=== PATIENT | female | born 1985 | race Caucasian/White ===

== ENCOUNTER 2024-03-13 20:03 | Emergency (ER) | payer MEDICAID ==
[~2024-03-13] VITALS: Ht 157.5 cm; Wt 72.6 kg
[2024-03-13 20:18] VITALS: BP 113/75; PULSE 70; RESP 16; TEMP 97.1; O2SAT 100
[2024-03-13 20:35] VITALS: BP 113/75; PULSE 70; RESP 16; TEMP 97.1; O2SAT 100
[2024-03-13] MEDS ORDERED: COROTSOL LEFT EAR (20:36)
[2024-03-13] MEDS ORDERED: CARB15DR61 OT (20:36)
== END 2024-03-13 20:40 | disposition home or self-care (01) ==
LOC: MED 20:03
DX: H61.22 Impacted cerumen, left ear (principal); Z79.2 Long term (current) use of antibiotics; Z79.899 Other long term (current) drug therapy
CPT/HCPCS: 99283